=== PATIENT | female | born 1950 ===

== ENCOUNTER 2016-11-20 18:20 | Emergency (ER) | payer OTHER ==
[~2016-11-20] VITALS: Ht 162.6 cm; Wt 58.5 kg
[~2016-11-20 18:20] MED LIST: DOCU-144 PO; NITR-58 PO
[2016-11-20 18:28] VITALS: Ht 162.6 cm; Wt 58.5 kg
[2016-11-20] MEDS ORDERED: ONDANSETRON 4 MG INJ IV STA (20:29)
[2016-11-20] MEDS ORDERED: SOD CHLORIDE 0.9% 1,000 ML IV STA (20:29)
[2016-11-20 20:31] LABS: URINE BLOOD (Dip) POC 1+ (NEGATIVE)
[2016-11-20 21:07] LABS: ADD SCAN DIFF NO
--- NOTE | 2016-11-20 21:08 | RADRPT ---
PROCEDURE: XR Chest. CLINICAL INDICATION: 66-year-old female with abdominal pain. TECHNIQUE: Single frontal view of the chest was obtained. COMPARISON: None FINDINGS: The soft tissues are normal. Degenerative osteophytes are present in the thoracic spine. The left ventricle is enlarged. The cardiomediastinal silhouette and hilar structures are normal. The pulmon amelia vasculature is normal. The right diaphragm is mildly elevated.. There is a left-sided aorta. T he lungs are clear. The costophrenic angles are normal. IMPRESSION: 1. There is no evidence of active cardiopulmonary disease. 2. Mild left ventricular enlargement. RPTAT:AAJJ Physician Aung Date Time Electronically viewed and signed by Physician Aung on 11/20/2016 21:07 /
[2016-11-20 21:09] LABS: BASOPHIL # 0.1 10^3/ul (0.0-0.1); BASOPHILS % 0.5 % (0.0-2.0); EOSINOPHILS % 0.1 % (0.0-7.0); HEMATOCRIT 38.4 % (37.0-47.0); HEMOGLOBIN 12.8 g/dl (12.0-16.0); LYMPHOCYTES # 1.9 10^3/ul (0.8-2.9); LYMPHOCYTES % 21.2 % (15.0-51.0); MEAN CORPUSCULAR HEMOGLOBIN 30.4 pg (29.0-33.0); MEAN CORPUSCULAR HGB CONC 33.3 g/dl (32.0-37.0); MEAN CORPUSCULAR VOLUME 91.2 fl (82.0-101.0); MONOCYTE # 0.5 10^3/ul (0.3-0.9); NEUTROPHIL # 6.6 10^3/ul (1.6-7.5); NEUTROPHILS % 72.8 % (39.0-77.0); PLATELET COUNT 358 10^3/UL (140-415); RED BLOOD COUNT 4.21 10^6/ul (4.20-5.40); RED CELL DISTRIBUTION WIDTH 13.1 % (11.5-14.5); WHITE BLOOD COUNT 9.1 10^3/ul (4.8-10.8)
[2016-11-20 21:16] LABS: ADD UMIC YES; UR ASCORBIC ACID 20 mg/dL (NEGATIVE); UR BILIRUBIN (Dip) NEGATIVE (NEGATIVE); UR BLOOD (Dip) NEGATIVE (NEGATIVE); UR CLARITY CLEAR (CLEAR); UR COLOR YELLOW (YELLOW); UR GLUCOSE (Dip) NEGATIVE (NEGATIVE); UR KETONES (Dip) NEGATIVE (NEGATIVE); UR LEUKOCYTE ESTERASE (Dip) 1+ Leu/ul (NEGATIVE); UR MUCUS FEW /HPF (NONE SEEN); UR NITRITE (Dip) NEGATIVE (NEGATIVE); UR RBC 2 /HPF (0-5); UR SPECIFIC GRAVITY (Dip) 1.023 (1.003-1.030); UR SQUAMOUS EPITHELIAL CELL FEW /HPF (FEW); UR TOTAL PROTEIN (Dip) 2+ mg/dl (NEGATIVE); UR UROBILINOGEN (Dip) NEGATIVE (NEGATIVE)
[2016-11-20 21:28] LABS: ALANINE AMINOTRANSFERASE 52 IU/L (13-69); ALBUMIN/GLOBULIN RATIO 1.51; ALKALINE PHOSPHATASE 59 IU/L (42-121); ANION GAP 15 (8-16); ASPARTATE AMINO TRANSFERASE 44 IU/L (15-46); BILIRUBIN,INDIRECT 0.3 mg/dl (0-1.1); BILIRUBIN,TOTAL 0.3 mg/dl (0.2-1.3); BLOOD UREA NITROGEN 16 mg/dl (7-20); CALCIUM 9.5 mg/dl (8.4-10.2); CARBON DIOXIDE 29 mmol/L (21-31); CHLORIDE 98 mmol/L (97-110); GLUCOSE 164 mg/dl (70-220); SODIUM 138 mmol/L (135-144); TOTAL PROTEIN 8.3 g/dl (6.1-8.1)
--- NOTE | 2016-11-20 21:39 | RADRPT ---
PROCEDURE: CT Head without. CLINICAL INDICATION: Headache, suspected intracranial hemorrhage. TECHNIQUE: The study was performed utilizing a multi-slice, multidetector CT scanner. Direct spira l 1 mm axial sections were obtained through the head without the use of intravenous contrast materia l. 1 or more of the following dose reduction techniques were utilized: Automated exposure control, adjustment of the mA and/or kV according to patient's size, iterative reconstruction technique. Co antione and sagittal reformations were obtained. The images were reviewed on a PACS workstation. RADIATION DOSE: CTDIvol: 43.2 mGyDLP: 824.9 mGy-cm COMPARISON: No prior studies are available for comparison. FINDINGS: There is no intracranial hemorrhage, extra-axial fluid collection, mass lesion, midline shift or hyd rocephalus. There is mild to moderate prominence of the cerebral sulci, lateral and third ventricle s. There is mild periventricular and subcortical white matter hypodensity. There is mild arteriosc lerotic calcification of the parasellar internal carotid arteries. The lennon-white matter differenti ation is preserved. The basal cisterns are patent. The midline structures are intact. The orbits, calvarium and extracranial soft tissues are normal in appearance. The visualized paranasal sinuses, mastoid air cells and middle ear cavities are normally aerated. IMPRESSION: 1. No acute intracranial abnormality. No intracranial hemorrhage, extra-axial fluid collection, ma ss lesion or hydrocephalous. 2. Mild to moderate peripheral and central cerebral volume loss. 3. Mild periventricular and subcortical white matter hypodensity, likely related to chronic microan giopathic changes. RPTAT: HGAS .Terry Mir MD, MD Date Time Electronically viewed and signed by .Terry Mir MD, on 11/20/2016 21:38 .S/
[2016-11-20 21:45] LABS: TROPONIN-I < 0.012 ng/ml (0.00-0.12)
[2016-11-20] MEDS ORDERED: LOSA25TA5 PO (21:56)
[2016-11-20] MEDS ORDERED: MTF1000T PO (21:56)
[2016-11-20] MEDS ORDERED: AMLO5TAB4 PO (21:56)
[2016-11-20] MEDS ORDERED: LEVO25TA53 PO (21:57)
[2016-11-20] MEDS ORDERED: CEPHALEXIN 500 MG CAP PO ONE (22:00)
[2016-11-20] MEDS ORDERED: ONDA4TAB8 PO (22:21)
[2016-11-20] MEDS ORDERED: CEPH-443 PO (22:21)
[2016-11-20] MEDS ORDERED: SOD CHLORIDE 0.9% 1,000 ML IV ONE (22:30)
[2016-11-20] MEDS ORDERED: METOCLOPRAMIDE 10 MG INJ IV ONE (22:30)
--- NOTE | 2016-11-20 22:31 | ERD ---
ER Documentation Chief Complaint Date/Time DATE: 11/20/16 TIME: 22:25 Chief Complaint dizziness w/ vomiting since last night HPI 66-year-old woman presents with dizziness and vertigo since last night, she states the world is spinning around her and has had a few episodes of clear nonbloody nonbilious emesis. She has had no abdominal pain, no diarrhea. She denies weakness in her arms or legs, no slurred speech, no blurry vision, no complaints of chest pain or shortness of breath. Patient denies any unusual food or medicine intake. ROS All systems reviewed and are negative except as per history of present illness. Medications Home Meds Active Scripts Cephalexin* (Keflex*) 500 Mg Capsule, 500 MG PO TID for 7 Days, CAP Prov:KARTHIK YUSUF MD 11/20/16 Ondansetron Hcl* (Zofran*) 4 Mg Tablet, 4 MG PO Q8H Y for NAUSEA AND/OR VOMITING , #15 TAB Prov:KARTHIK YUSUF MD 11/20/16 Reported Medications Levothyroxine Sodium* (Levothyroxine Sodium*) 25 Mcg Tablet, 25 MCG PO BEFORE BREAKFAST, #30 TAB 11/20/16 Amlodipine Besylate* (Norvasc*) 5 Mg Tablet, 5 MG PO DAILY, TAB 11/20/16 Losartan Potassium* (Losartan Potassium*) 25 Mg Tablet, 25 MG PO DAILY, TAB 11/20/16 Metformin* (Glucophage*) 1,000 Mg Tablet, 1000 MG PO BID, #60 TAB 11/20/16 Discontinued Scripts Docusate Sodium* (Colace*) 100 Mg Capsule, 100 MG PO TID, #30 CAP Prov:Ramonita Zee PA-C 04/12/16 Nitrofurantoin Monohyd Macrocr* (Macrobid*) 100 Mg Capsr, 100 MG PO BID for 7 Days, CAP Prov:Ramonita Zee PA-C 04/12/16 Allergies Allergies: Coded Allergies: No Known Allergy (Unverified , 04/12/16) PMhx/Soc Diabetes mellitus, hypertension, hypothyroidism Hx Cardiac Disorders: Yes (HTN) Hx Alcohol Use: No Hx Substance Use: No Hx Tobacco Use: No Smoking Status: Never smoker FmHx Family History: No diabetes Physical Exam Vitals Vital Signs Date Time Temp Pulse Resp B/P Pulse Ox O2 Delivery O2 Flow Rate FiO2 11/20/16 21:23 97 16 139/81 100 11/20/16 18:28 97.8 70 20 144/67 98 Physical Exam GENERAL: Well-developed, well-nourished, appears nauseous HEENT: Moist mucous membranes, pink conjunctiva, no cervical spine tenderness or step-off deformities, no goiter, no jaundice or icterus, extraocular movements intact without pain. No submandibular induration, and no pharyngeal erythema NEURO: Alert and oriented 3, cranial nerves II through XII intact bilaterally, pupils equal round reactive to light, no focal deficits or facial asymmetry, sensation intact distally Strength 5/5 in upper and lower extremities bilaterally CARDIAC: Regular rate and rhythm, no murmurs rubs or gallops LUNGS: Clear bilaterally no wheezing crackles or stridor ABDOMEN: Soft nontender, no guarding, no rigidity, no rebound, no psoas sign no obturator sign. Normoactive bowel sounds SKIN: Warm and dry to touch, no abrasions, contusions, or hematomas, no lacerations, no ecchymosis, no target lesions, and without ulcers EXTREMITIES: No clubbing cyanosis or edema, calves are bilaterally symmetrical, no Homans sign, no popliteal cord sign. Distal pulses equal and bilateral PSYCH: Normal affect without agitation or irritability Result Diagram: 11/20/16203911/20/162039 Results 24 hrs Laboratory Tests Test 11/20/16 20:30 11/20/16 20:33 11/20/16 20:40 Urine Color YELLOW Urine Clarity CLEAR Urine pH 5.0 Urine Specific Walker 1.023 Urine Ketones NEGATIVEmg/dL Urine Nitrite NEGATIVEmg/dL Urine Bilirubin NEGATIVEmg/dL Urine Urobilinogen NEGATIVEmg/dL Urine Leukocyte Esterase 1+Booker/ul Urine Microscopic RBC 2/HPF Urine Microscopic WBC 8/HPF Urine Squamous Epithelial Cells FEW/HPF Urine Mucus FEW/HPF Urine Hemoglobin NEGATIVEmg/dL Urine Glucose NEGATIVEmg/dL Urine Total Protein 2+mg/dl Bedside Urine pH (LAB) 6.0 Bedside Urine Protein (LAB) 2+ Bedside Urine Glucose (UA) Negative Bedside Urine Ketones (LAB) Negative Bedside Urine Blood 1+ Bedside Urine Nitrite (LAB) Negative Bedside Urine Leukocyte Esterase (L Negative White Blood Count 9.110^3/ul Red Blood Count 4.2110^6/ul Hemoglobin 12.8g/dl Hematocrit 38.4% Mean Corpuscular Volume 91.2fl Mean Corpuscular Hemoglobin 30.4pg Mean Corpuscular Hemoglobin Concent 33.3g/dl Red Cell Distribution Width 13.1% Platelet Count 49380^3/UL Mean Platelet Volume 10.0fl Neutrophils % 72.8% Lymphocytes % 21.2% Monocytes % 5.0% Eosinophils % 0.1% Basophils % 0.5% Nucleated Red Blood Cells % 0.0/100WBC Neutrophils # 6.610^3/ul Lymphocytes # 1.910^3/ul Monocytes # 0.510^3/ul Eosinophils # 0.010^3/ul Basophils # 0.110^3/ul Nucleated Red Blood Cells # 0.010^3/ul Sodium Level 138mmol/L Potassium Level 4.0mmol/L Chloride Level 98mmol/L Carbon Dioxide Level 29mmol/L Anion Gap 15 Blood Urea Nitrogen 16mg/dl Creatinine 0.80mg/dl Glucose Level 164mg/dl Calcium Level 9.5mg/dl Total Bilirubin 0.3mg/dl Direct Bilirubin 0.00mg/dl Indirect Bilirubin 0.3mg/dl Aspartate Amino Transf (AST/SGOT) 44IU/L Alanine Aminotransferase (ALT/SGPT) 52IU/L Alkaline Phosphatase 59IU/L Troponin I < 0.012ng/ml Total Protein 8.3g/dl Albumin 5.0g/dl Globulin 3.30g/dl Albumin/Globulin Ratio 1.51 Lipase 187U/L Current Medications Medications (Trade) Dose Ordered Sig/Tonja Route PRN Reason Start Time Stop Time Status Last Admin Dose Admin Sodium Chloride (NS) 1,000 ml @ 1,000 mls/hr Q1H STAT IV 11/20/16 20:29 11/20/16 21:28 DC 11/20/16 20:44 Ondansetron HCl (Zofran Inj) 4 mg ONCE STAT IV 11/20/16 20:29 11/20/16 20:30 DC 11/20/16 20:44 Cephalexin (Keflex) 500 mg ONCE ONCE PO 11/20/16 22:00 11/20/16 22:01 DC 11/20/16 22:20 Procedures/MDM IV line was established 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 Patient was afebrile. EKG performed, read by me revealed a sinus bradycardia 55 bpm, normal axis, narrow QRS complex, no concerning ST elevations or depressions noted. One AP view of the chest performed, read by me reveals no acute infiltrates, normal mediastinum, sharp costophrenic and cardiac borders, no air under the diaphragm. Otherwise unremarkable chest x-ray. CT scan of the brain was performed that was negative for acute bleed mass or shift. Chronic changes noted. Please refer to radiologist dictation for full report. I administered 1 L normal saline intravenously with Zofran 4 mg IV, there was improvement in symptoms although for continued vertigo I administered a second liter of saline and metoclopramide 10 mg IV. CBC was unremarkable, electrolytes revealed dehydration, liver function tests normal, troponin negative. Urine analysis was concerning for urinary tract infection, I treated her here with cephalexin 500 mg p.o. Patient had no episodes of vomiting while in the emergency department and her symptoms have improved. I suspect benign paroxysmal positional vertigo. Differential diagnoses considered, included but not limited to basilar artery insufficiency, vertigo, acute coronary syndrome, pulmonary embolism, aortic dissection, abdominal aortic aneurysm, sepsis, stroke, meningitis, encephalitis , pneumonia, appendicitis, cholecystitis, bowel obstruction, pyelonephritis, nephrolithiasis, cystitis, as well as metabolic, hematologic, and electrolyte abnormalities. As well as abscess, cellulitis, fractures, and dislocations. Patient feels much better at this time, and vital signs are normal, symptoms have improved. I did give strict instructions to return to the ED if symptoms continue or worsen, patient will otherwise follow-up with primary care physician. Patient understood instructions and agreed to plan. Disclaimer: Inadvertent spelling and grammatical errors are likely due to EHR/ dictation software use and do not reflect on the overall quality of patient care. Also, please note that the electronic time recorded on this note does not necessarily reflect the actual time of the patient encounter. Departure Diagnosis: Primary Impression: UTI (urinary tract infection) Urinary tract infection type: acute cystitis Hematuria presence: without hematuria Qualified Code: N30.00 - Acute cystitis without hematuria Additional Impressions: Vertigo Dehydration Vomiting Vomiting type: unspecified Vomiting Intractability: non-intractable Nausea presence: with nausea Qualified Code: R11.2 - Non-intractable vomiting with nausea, unspecified vomiting type Condition: Good Patient Instructions: Dizziness, Unk Cause, Bladder Infection, Female (Adult) KARTHIK YUSUF MD Nov 20, 2016 22:31
[2016-11-20 23:43] VITALS: BP 127/59; PULSE 60; RESP 18
== END 2016-11-20 23:44 | disposition home or self-care (01) ==
LOC: E/R 18:20
DX: N30.00 Acute cystitis without hematuria (principal); E86.0 Dehydration; R11.2 Nausea with vomiting, unspecified; E11.9 Type 2 diabetes mellitus without complications; I10 Essential (primary) hypertension; E03.9 Hypothyroidism, unspecified; Z79.84 Long term (current) use of oral hypoglycemic drugs
CPT/HCPCS: 36415; 70450; 71010; 80053; 81001; 83690; 84484; 85025; 93005; 96374; 96375; 99285; J2405; J2765; J7030; 81003